=== PATIENT | female | born 1940 | race Caucasian/White ===

== ENCOUNTER 2021-10-20 07:57 | Emergency (ER) | payer MEDICARE, BC ==
[~2021-10-20] VITALS: Ht 170.2 cm; Wt 97.5 kg
[~2021-10-20 07:57] MED LIST: ELIQUIS PO; LASIX40 MG PO; LOSARTAN-HCTZ1 EAC2 PO; METFORMIN HCL500 MG PO; MULTAQ400 MG PO; NIFEDIPINE ER30 M1 PO; NORCO 5-325 TA1 EACH PO; PRILOSEC PO; Z.0.LORTAB 7.5-5001 PO; Z.0.LOTREL 5-20 MG1 PO; [UNRECOGNIZED DRUG - OTHER]
== END 2021-10-20 10:08 | disposition home or self-care (01) ==
LOC: ER 08:26
DX: G51.0 Bell's palsy (principal); Z85.828 Personal history of other malignant neoplasm of skin; E11.9 Type 2 diabetes mellitus without complications; I48.91 Unspecified atrial fibrillation; Z79.02 Long term (current) use of antithrombotics/antiplatelets; Z79.84 Long term (current) use of oral hypoglycemic drugs
CPT/HCPCS: 70450; 99283